=== PATIENT | male | born 1970 | race Caucasian/White ===

== ENCOUNTER 2020-06-28 08:17 | Observation (INO) ==
[2020-06-28] MEDS ORDERED: DILTIAZEM HCL 5 MG/ML VIAL IV ONE ×2 (08:40→08:41)
[2020-06-28] MEDS ORDERED: DILTIAZEM HCL 125 MG in DEXTROSE 5 % IN WATER 100 ML IV PRN ×2 (08:43)
--- NOTE | 2020-06-28 08:56 | ERNOTE ---
Chest Pain/Cardiac HPI Date of Service: 06/28/20 Chief Complaint: Palpitations Time Seen by Provider: 06/28/20 08:38 Source: patient Exam Limitations: no limitations Immunizations: IMMUNIZATION HX Immunizations Up to Date Yes History of Influenza Vaccine No Hx Pneumococcal Vaccination No Allergies/Adverse Reactions: Allergies No Known Allergies Allergy (Unverified 10/18/15 18:48) Home Medications: HOME MEDICATIONS NK 06/28/20 [Last Taken Unknown] Narrative: Patient presents to the ED for palpitations. He relates that yesterday he noticed palpitations. This fluctuated but this am at work he felt lightheaded with exertion and felt his heart racing. No CP, no SOB. Feels fine at rest now. Has never had this happen before. Has not seen anyone else for this. No calf pain or leg swelling. No fever or cough. No vomiting. No acute focal N/T/W. Timing: constant, other - fluctuating intensity Severity/Quality: moderate Location: other - no chest pain Chest Pain Radiation: no radiation Activities at Onset: none Modifying Factors - Improves: Present: nothing Modifying Factors - Worsens: Present: other - exertion Nitro Today/Relief: no nitro taken today Aspirin Treatment Today: no aspirin today Associated Symptoms: Present: palpitations. Absent: headache, cough, fever/chills, abdominal pain, weakness Prior Chest Pain/Cardiac Workup: Denies: prior chest pain Prior Treatment: Denies: recently seen Review of Systems - Review of Systems Constitutional: Absent: fever EYE: Present: no symptoms reported ENT: Present: no symptoms reported Respiratory: Present: See HPI Cardiology: Absent: chest pain Gastrointestinal/Abdominal: Present: no symptoms reported Musculoskeletal: Present: no symptoms reported Neurological: Present: no symptoms reported All Other Systems: All systems neg except as marked Medical History (Last Reviewed 06/28/20 @ 08:53 by Quinn Boston MD) Hypertension No pertinent family history Surgical History: Surgical History (Last Updated 06/28/20 @ 08:51 by Mary Packer RN) No pertinent past surgical history Social History: (Last Reviewed 06/28/20 @ 08:54 by Quinn Boston MD) Tobacco: Smoking Status: Current every day smoker Smoking cigarettes per day: 20 Alcohol: alcohol intake: never Substance Use: substance use type: does not use Physical Exam - Physical Exam General Appearance: Present: alert, no apparent distress Head Exam: Present: normal inspection, no evidence of injury Eye Exam: Normal inspection: bilateral, PERRL: bilateral Ears, Nose, Throat: Present: normal ENT inspection Neck: Present: normal inspection Respiratory: Present: no respiratory distress, normal breath sounds, no accessory muscle use, lungs clear Cardiovascular/Chest: Present: normal peripheral pulses, tachycardia, irregularly irregular Gastrointestinal/Abdominal: Present: normal bowel sounds, nontender, nondistended, soft Back Exam: Present: normal range of motion Extremity Exam: Present: normal inspection, non-tender, normal range of motion Neurological Exam: Present: alert, no motor/sensory deficits Skin Exam: Present: normal color, warm/dry Progress - Results and Orders Patient's Lab Results:: I have reviewed the patient's lab results. - Vital Signs Patient's Vital Signs:: I have reviewed the patient's vital signs. Vital Signs: Vital Signs 06/28/20 08:18 06/28/20 08:40 06/28/20 08:43 Temperature 37.4 C Pulse Rate 170 H 130 H 169 H Respiratory Rate 16 18 Blood Pressure 138/118 H 139/118 H 138/118 H O2 Sat by Pulse Oximetry 97 95 - EKG EKG #1 EKG: atrial fibrillation EKG read: Interp. by me EKG Comments: A fib RVR rate 171. Non-specific ST/T wave changes, no STEMI noted. Rate related changes. - X-Ray X-Ray #1 X-Ray: chest Interpretation: Interp. by me X-ray Comments: I personally reviewed images as well as official radiology report - Progress/Reassessment Chief Complaint: Palpitations Progress Note-Subjective: 06/28/20 11:00 Patient asymptomatic now. no CP or SOB. IV Cardizem bolus and IV drip given. HR 105-110 with the Drip at 15mg/h. I discussed the case with Dr Almonte who will admit. Patient agreeable. Departure Clinical Impression: Atrial fibrillation with RVR - Departure Disposition: Still a patient Condition: Stable
[2020-06-28 09:03] LABS: Hematocrit 47.7 % (42.0-52.0); Hemoglobin 16.2 gm/dL (13.5-18.0); Mean Corpuscular Hemoglobin 31.6 pg (27-31); Mean Platelet Volume 9.8 fl (8-11.3); Neutrophil # 5.6 K/mm3 (1.3-6.0); Neutrophil % 59.8 % (42-75.0); Platelet Count 202 K/mm3 (150-450); Red Blood Count 5.13 M/mm3 (4.7-6.0); White Blood Count 9.4 K/mm3 (4.0-10.5)
[2020-06-28 09:25] LABS: ALT 34 U/L (19-67); AST 27 U/L (0-48); Albumin * 3.2 gm/dl (3.4-5.0); Alkaline Phosphatase * 100 U/L (50-170); Anion Gap 12.4 mmol/L (6.8-13.8); BUN/Creatinine Ratio 9.9 (9.0-21.6); Bilirubin, Total 0.4 mg/dL (0.0-1.1); Blood Urea Nitrogen 9 mg/dL (6-23); Ca. Corrected For Albumin 9.2 mg/dL (8.4-10.2); Calcium * 8.9 mg/dL (7.9-10.9); Carbon Dioxide 26.9 mmol/L (24-32.6); Chloride 103 mmol/L (97-106); Glucose * 147 mg/dL (70-110); Magnesium 1.7 mg/dL (1.2-2.8); Potassium 4.3 mmol/L (3.4-4.6); Sodium 138 mmol/L (132-142); TSH * 2.603 uIU/mL (0.358-3.74); Total Protein 7.4 gm/dL (6.2-8.2)
[2020-06-28 09:28] LABS: Troponin I Less than 0.017 ng/mL (0.00-0.10)
[2020-06-28] MEDS ORDERED: ENOXAPARIN SODIUM 100 MG/ML SYRG SC ONE (10:47)
--- NOTE | 2020-06-28 12:15 | HP ---
Chief Complaint - Chief Complaint Date of Service: 06/28/20 Time of Service: 12:11 Chief Complaint: Palpitations History of Present Illness: Rony Damon is a 49-year-old white male with past medical history of hypertension presented to the ER on 06/28/2020 for palpitations . His palpitations started yesterday at 8 PM. This morning his palpitations became worse so he came to the emergency room. 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 He denies any chest pain, fever, and shortness of breath. Per laboratory work from the ER: TSH was normal, troponin was normal at 0.017, electrolytes were normal, and labs showed no anemia. Patient's EKG in the ER showed a-fib with RVR and was started on a diltiazem drip. The patient continues to be tachycardic but reduced from the 170 in the ER. Chest x-ray was grossly normal. Patient smokes 1 pack per day for the last 20 years. He is not regular drinker, maybe 2-3 drinks per month. Medical History (Last Updated 06/28/20 @ 11:30 by Sascha Pop RN) Dental abscess Hypertension No pertinent family history Surgical History: Surgical History (Last Reviewed 06/28/20 @ 11:30 by Sascha Pop RN) No pertinent past surgical history Social History: (Last Updated 06/28/20 @ 11:32 by Sascha Pop RN) Tobacco: Smoking Status: Current every day smoker Smoking cigarettes per day: 20 Alcohol: alcohol intake: current alcohol intake frequency: holiday/special occasion Substance Use: substance use type: does not use Review Of Systems (GEN) - Review of Systems Generalized/Overall Review: Absent: Weakness, Chills, Fever EENTM: Absent: Blurred Vision Respiratory: Absent: Cough, Shortness of Breath, Orthopnea Cardiac: Present: Palpitations. Absent: Chest Pain, Edema Abdominal: Absent: Nausea, Vomiting, Abdominal Pain Genitourinary: Absent: Urgency, Frequency Musculoskeletal: Absent: Joint Pain, Back Pain Neurological: Absent: Headache, Other - Dizziness Skin: Absent: Lesions, Rash Endocrine: Absent: Intolerance to Cold, Intolerance to Heat Misc: All systems neg except as marked Immunizations: IMMUNIZATION HX Immunizations Up to Date Yes History of Influenza Vaccine No Hx Pneumococcal Vaccination No Allergies/Adverse Reactions: Allergies Allergy/AdvReac Type Severity Reaction Status Date / Time No Known Allergies Allergy Unverified 06/28/20 11:32 Home Medications: HOME MEDICATIONS NK 06/28/20 [Last Taken Unknown] Exam - Exam Vital Signs: Vital Signs - Last Taken Temp 36.3 C 06/28/20 11:27 Pulse 118 H 06/28/20 11:40 Resp 18 06/28/20 11:27 BP 148/74 H 06/28/20 11:27 Pulse Ox 95 06/28/20 11:27 Constitutional: Present: Alert, Oriented x3, Cooperative, Well developed, No distress, Morbidly obese ENT Exam: Present: hearing grossly normal Eye Exam: bilateral eye: normal inspection, PERRL, EOMI Neck: Present: supple. Absent: lymphadenopathy (R), lymphadenopathy (L) Respiratory: Present: lungs clear, normal breath sounds, no respiratory distress, No rales, No wheezing Cardiovascular/Chest: Present: no JVD, no murmur, tachycardia, irregularly irregular Abdomen: Present: Normal bowel sounds, soft, nontender, obese Extremity: Present: no pedal edema, no calf tenderness Diagnostic Studies: Abnormal Lab Results 06/28/20 06/28/20 Range/Units 08:58 08:58 MCH 31.6 H (27-31) pg Eosinophils % 4.3 H (0.0-3.0) % Random Glucose 147 H (70-110) mg/dL Albumin 3.2 L (3.4-5.0) gm/dl Laboratory Results WBC 9.4 K/mm3 (4.0-10.5) 06/28/20 08:58 RBC 5.13 M/mm3 (4.7-6.0) 06/28/20 08:58 Hgb 16.2 gm/dL (13.5-18.0) 06/28/20 08:58 Hct 47.7 % (42.0-52.0) 06/28/20 08:58 MCV 93.0 fl (78-100) 06/28/20 08:58 MCH 31.6 pg (27-31) H 06/28/20 08:58 MCHC 34.0 g/dl (32-36) 06/28/20 08:58 RDW 12.0 % (11.5-14.0) 06/28/20 08:58 Plt Count 202 K/mm3 (150-450) 06/28/20 08:58 MPV 9.8 fl (8-11.3) 06/28/20 08:58 Immature Gran % (Auto) 0.30 % (0.001-0.429) 06/28/20 08:58 Immature Gran # (Auto) 0.03 K/mm3 (0.000-0.0310) 06/28/20 08:58 Neutrophils % 59.8 % (42-75.0) 06/28/20 08:58 Lymphocytes % 27.1 % (20-51) 06/28/20 08:58 Monocytes % 7.8 % (0.0-9) 06/28/20 08:58 Eosinophils % 4.3 % (0.0-3.0) H 06/28/20 08:58 Basophils % 0.7 % (0.0-1.0) 06/28/20 08:58 Nucleated RBC % 0.0 k/mm3 (0-1) 06/28/20 08:58 Neutrophils # 5.6 K/mm3 (1.3-6.0) 06/28/20 08:58 Lymphocytes # 2.55 k/mm3 (1.5-3.5) 06/28/20 08:58 Monocytes # 0.7 k/mm3 (0.0-1.0) 06/28/20 08:58 Eosinophils # 0.4 k/mm3 (0.0-0.7) 06/28/20 08:58 Absolute Basophils 0.1 k/mm3 (0.0-0.1) 06/28/20 08:58 Sodium 138 mmol/L (132-142) 06/28/20 08:58 Plasma Sodium 139 mmol/L (130-142) 06/28/20 08:58 Potassium 4.3 mmol/L (3.4-4.6) 06/28/20 08:58 Chloride 103 mmol/L (97-106) 06/28/20 08:58 Carbon Dioxide 26.9 mmol/L (24-32.6) 06/28/20 08:58 Anion Gap 12.4 mmol/L (6.8-13.8) 06/28/20 08:58 BUN 9 mg/dL (6-23) 06/28/20 08:58 Creatinine 0.91 mg/dL (0.4-1.4) 06/28/20 08:58 Est GFR (Non-Af Amer) 95 mL/min (60-130) 06/28/20 08:58 BUN/Creatinine Ratio 9.9 (9.0-21.6) 06/28/20 08:58 Random Glucose 147 mg/dL (70-110) H 06/28/20 08:58 Calcium 8.9 mg/dL (7.9-10.9) 06/28/20 08:58 Calcium Adj for Albumin 9.2 mg/dL (8.4-10.2) 06/28/20 08:58 Magnesium 1.7 mg/dL (1.2-2.8) 06/28/20 08:58 Total Bilirubin 0.4 mg/dL (0.0-1.1) 06/28/20 08:58 AST 27 U/L (0-48) 06/28/20 08:58 ALT 34 U/L (19-67) 06/28/20 08:58 Alkaline Phosphatase 100 U/L (50-170) 06/28/20 08:58 Troponin I Less than 0.017 ng/mL (0.00-0.10) 06/28/20 08:58 Total Protein 7.4 gm/dL (6.2-8.2) 06/28/20 08:58 Albumin 3.2 gm/dl (3.4-5.0) L 06/28/20 08:58 TSH 2.603 uIU/mL (0.358-3.74) 06/28/20 08:58 Assessment/Plan - Narrative Narrative: Nelson Uribe is a 49 year old male admitted for a-fib with RVR hemodynamically stable. By history less than 24 hours. He was given IV Cardizem bolus and followed up with Cardizem drip. I talked to him about rhythm vs rate control and anticoagulation. I did also tell him that since he is still young and this being the first episode we will try rhythm control over rate control. I told him we would try electrocardioverting him within 48 hours unless he spontaneously go back to NSR. We went over the risk and benefits of the procedure. Tomorrow morning will check rhythm to see if he has converted on his own. If not will plan to electrocardiovert. We will get an echocardiogram today. I will start him on Eliquis tonight as he already got Lovenox this morning. I will also start or add metoprolol tartrate 50 mg PO BID to BP/HR medication. - Assessment/Plan (1) Atrial fibrillation with RVR Problem: Acute (2) Hypertension Problem: Chronic Qualifiers: Hypertension type: essential hypertension Qualified Code(s): I10 - Essential (primary) hypertension (3) Morbidly obese Problem: Chronic
[2020-06-28] MEDS: DILTIAZEM HCL 30 MG TABLET PO SCH ×2 (15:08→20:47)
[2020-06-28] MEDS ORDERED: METOPROLOL TARTRATE 50 MG TABLET PO SCH (21:00)
[2020-06-28] MEDS ORDERED: APIXABAN 5 MG TABLET PO SCH (21:00)
[2020-06-29] MEDS: DILTIAZEM HCL 30 MG TABLET PO SCH (02:13)
[2020-06-29] MEDS ORDERED: DILTIAZEM HCL 120 MG CAP.SR.24H PO SCH (08:15)
--- NOTE | 2020-06-29 08:23 | DS ---
(1) Paroxysmal atrial fibrillation Problem: Acute (2) Atrial fibrillation with RVR Problem: Resolved (3) Hypertension Problem: Chronic Qualifiers: Hypertension type: essential hypertension Qualified Code(s): I10 - Essential (primary) hypertension (4) Morbidly obese Problem: Chronic Date of Discharge:: 06/29/20 Hospital Course: Rony Damon is a 49-year-old white male with past medical history of hypertension presented to the ER on 06/28/2020 for palpitations . His palpitations started 1 day [employer] at 8 PM. On the morning of admission, his palpitations became worse so he came to the emergency room. 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 He denied any chest pain, fever, and shortness of breath. Per laboratory work from the ER: TSH was normal, troponin was normal at 0.017, electrolytes were normal, and labs showed no anemia. Patient's EKG in the ER showed a-fib with RVR and was started on a diltiazem drip. The patient continued to be tachycardic but reduced from the 170 in the ER to 110-130.. Chest x-ray was grossly normal. He was admitted and continued on IV cardizem drip. He converted spontaneously by mid to late afternoon. He was started on oral cardizem 30 mg PO q 6 hiours and his drip was stopped. His Chads score is 1 and will start him on baby ASA and stop his Eliquis. Will start him on Cardizem CD 120 mg PO q daily for his BP and control of heart rate. He was noticed to be snoring last night . His Echo showed mild LVH, EF 54%, positive diastolic dysfunction, trase TR, RVSP of 32 mmHg. He will need a sleep study as outpatient . He will likely also need a stress test as outpatient. I will leave that up to his PCP he will establish care with. He can follow up with me x 1 for now. Procedures Performed: none Results and Findings: Lab Pending Results 06/28/20 08:58: WBC 9.4, RBC 5.13, Hgb 16.2, Hct 47.7, MCV 93.0, MCH 31.6 H, MCHC 34.0, RDW 12.0, Plt Count 202, MPV 9.8, Immature Gran % (Auto) 0.30, Immature Gran # (Auto) 0.03, Neutrophils % 59.8, Lymphocytes % 27.1, Monocytes % 7.8, Eosinophils % 4.3 H, Basophils % 0.7, Nucleated RBC % 0.0, Neutrophils # 5.6, Lymphocytes # 2.55, Monocytes # 0.7, Eosinophils # 0.4, Absolute Basophils 0.1 06/28/20 08:58: Sodium 138, Plasma Sodium 139, Potassium 4.3, Chloride 103, Carbon Dioxide 26.9, Anion Gap 12.4, BUN 9, Creatinine 0.91, Est GFR (Non-Af Amer) 95, BUN/Creatinine Ratio 9.9, Random Glucose 147 H, Calcium 8.9, Calcium Adj for Albumin 9.2, Magnesium 1.7, Total Bilirubin 0.4, AST 27, ALT 34, Alkaline Phosphatase 100, Troponin I Less than 0.017, Total Protein 7.4, Albumin 3.2 L, TSH 2.603 Discharge Location: Home Disposition: Home self-care Condition: Stable Discharge Activity: Activity as tolerated Discharge Diet: Low salt Additional Patient Instructions (free text): Patient will need to establish care with a PCP and I will leave it up to his PCP and him to discuss sleep study and possible stress test as an outpatient. I did tell him about these tests possibilties but he would not answer yes or no. He may follow up with me x 1 in 1 week.. Prescriptions (Any new or edited meds): Aspirin [Aspirin EC] 81 mg PO DAILY #30 tablet. Transmission Status: Received by [facility] [place] Diltiazem HCl [Cardizem Cd] 120 mg PO DAILY 3 Days #30 cap Transmission Status: Received by [facility], [place] Complete Home Medications List: Complete Home Medication List: Aspirin [Aspirin EC] 81 mg PO DAILY #30 tablet. 06/29/20 Diltiazem HCl [Cardizem Cd] 120 mg PO DAILY 3 Days #30 cap 06/29/20
[2020-06-29] MEDS ORDERED: ASPIRIN 81 MG TABLET.DR PO SCH (09:00)
[2020-06-29 13:06] VITALS: BP 120/72
== END 2020-06-29 12:26 | disposition home or self-care (01) ==
LOC: MS 08:17 → ER 08:17 → MS 11:12
PROVIDERS: ADMIT Internal Medicine; ATTEND Internal Medicine
DX: F17.210 Nicotine dependence, cigarettes, uncomplicated; E66.01 Morbid (severe) obesity due to excess calories; I10 Essential (primary) hypertension; I48.0 Paroxysmal atrial fibrillation; R00.2 Palpitations; Z68.41 Body mass index [BMI] 40.0-44.9, adult